=== PATIENT | male | born 1975 | race Caucasian/White ===

== ENCOUNTER → 2017-07-31 | Outpatient (CLI) | payer MEDICARE, MEDICAID | END | disposition home or self-care (01) | LOC: WOUND 10:12 | PROVIDERS: ATTEND Family Medicine | DX: L97.212 Non-pressure chronic ulcer of right calf with fat layer exposed (principal); G82.21 Paraplegia, complete; K21.9 Gastro-esophageal reflux disease without esophagitis; G89.29 Other chronic pain | CPT/HCPCS: G0463; WOU0463 ==

== ENCOUNTER → 2017-08-21 | Outpatient (CLI) | payer MEDICARE, MEDICAID | END | disposition home or self-care (01) | LOC: WOUND 10:14 | PROVIDERS: ATTEND Family Medicine | DX: T81.31XD Disruption of external operation (surgical) wound, not elsewhere classified, subsequent encounter (principal); L89.893 Pressure ulcer of other site, stage 3; L97.212 Non-pressure chronic ulcer of right calf with fat layer exposed; G82.21 Paraplegia, complete; K21.9 Gastro-esophageal reflux disease without esophagitis; G89.29 Other chronic pain; Y83.8 Other surgical procedures as the cause of abnormal reaction of the patient, or of later complication, without mention of misadventure at the time of the procedure | CPT/HCPCS: 11043; 11046 ==

== ENCOUNTER → 2017-10-09 | Outpatient (CLI) | payer MEDICARE, MEDICAID | END | disposition home or self-care (01) | LOC: WOUND 09:47 | PROVIDERS: ATTEND Family Medicine | DX: T81.31XD Disruption of external operation (surgical) wound, not elsewhere classified, subsequent encounter (principal); G82.21 Paraplegia, complete; L89.893 Pressure ulcer of other site, stage 3; K21.9 Gastro-esophageal reflux disease without esophagitis; G89.29 Other chronic pain; Y83.8 Other surgical procedures as the cause of abnormal reaction of the patient, or of later complication, without mention of misadventure at the time of the procedure | CPT/HCPCS: 11043; 11046 ==

== ENCOUNTER → 2017-10-23 | Outpatient (CLI) | payer MEDICARE, MEDICAID | END | disposition home or self-care (01) | LOC: WOUND 10:00 | PROVIDERS: ATTEND Family Medicine | DX: T81.31XD Disruption of external operation (surgical) wound, not elsewhere classified, subsequent encounter (principal); L89.893 Pressure ulcer of other site, stage 3; G82.21 Paraplegia, complete; K21.9 Gastro-esophageal reflux disease without esophagitis; G89.29 Other chronic pain; Y83.8 Other surgical procedures as the cause of abnormal reaction of the patient, or of later complication, without mention of misadventure at the time of the procedure | CPT/HCPCS: 11042; 11045; 97606 ==

== ENCOUNTER → 2017-10-30 | Outpatient (CLI) | payer MEDICARE, MEDICAID | END | disposition home or self-care (01) | LOC: WOUND 10:00 | PROVIDERS: ATTEND Family Medicine | DX: T81.31XD Disruption of external operation (surgical) wound, not elsewhere classified, subsequent encounter (principal); L89.893 Pressure ulcer of other site, stage 3; G82.21 Paraplegia, complete; K21.9 Gastro-esophageal reflux disease without esophagitis; G89.29 Other chronic pain; Y83.8 Other surgical procedures as the cause of abnormal reaction of the patient, or of later complication, without mention of misadventure at the time of the procedure | CPT/HCPCS: 11042; 11045; 97606 ==

== ENCOUNTER → 2017-11-13 | Outpatient (CLI) | payer MEDICARE, MEDICAID | END | disposition home or self-care (01) | LOC: WOUND 10:30 | PROVIDERS: ATTEND Family Medicine | DX: T81.31XD Disruption of external operation (surgical) wound, not elsewhere classified, subsequent encounter (principal); L89.893 Pressure ulcer of other site, stage 3; L97.213 Non-pressure chronic ulcer of right calf with necrosis of muscle; G82.21 Paraplegia, complete; G89.29 Other chronic pain; K21.9 Gastro-esophageal reflux disease without esophagitis; Y83.8 Other surgical procedures as the cause of abnormal reaction of the patient, or of later complication, without mention of misadventure at the time of the procedure | CPT/HCPCS: 11043; 11046; 97606 ==

== ENCOUNTER → 2017-11-20 | Outpatient (CLI) | payer MEDICARE, MEDICAID | END | disposition home or self-care (01) | LOC: WOUND 10:00 | PROVIDERS: ATTEND Family Medicine | DX: T81.31XD Disruption of external operation (surgical) wound, not elsewhere classified, subsequent encounter (principal); L89.893 Pressure ulcer of other site, stage 3; G82.21 Paraplegia, complete; K21.9 Gastro-esophageal reflux disease without esophagitis; G89.29 Other chronic pain; Y83.8 Other surgical procedures as the cause of abnormal reaction of the patient, or of later complication, without mention of misadventure at the time of the procedure | CPT/HCPCS: 15271; 15272; Q4132 ==

== ENCOUNTER → 2017-11-27 | Outpatient (CLI) | payer MEDICARE, MEDICAID | END | disposition home or self-care (01) | LOC: WOUND 10:00 | PROVIDERS: ATTEND Family Medicine | DX: T81.31XD Disruption of external operation (surgical) wound, not elsewhere classified, subsequent encounter (principal); L89.893 Pressure ulcer of other site, stage 3; G82.21 Paraplegia, complete; K21.9 Gastro-esophageal reflux disease without esophagitis; G89.29 Other chronic pain; Y83.8 Other surgical procedures as the cause of abnormal reaction of the patient, or of later complication, without mention of misadventure at the time of the procedure | CPT/HCPCS: 11042; 11045; 97605 ==

== ENCOUNTER → 2017-12-04 | Outpatient (CLI) | payer MEDICARE, MEDICAID | END | disposition home or self-care (01) | LOC: WOUND 10:27 | PROVIDERS: ATTEND Family Medicine | DX: T81.31XD Disruption of external operation (surgical) wound, not elsewhere classified, subsequent encounter (principal); L89.893 Pressure ulcer of other site, stage 3; G82.21 Paraplegia, complete; K21.9 Gastro-esophageal reflux disease without esophagitis; G89.29 Other chronic pain; Y83.8 Other surgical procedures as the cause of abnormal reaction of the patient, or of later complication, without mention of misadventure at the time of the procedure | CPT/HCPCS: 11042; 11045; 97605 ==

== ENCOUNTER → 2017-12-11 | Outpatient (CLI) | payer MEDICARE, MEDICAID | END | disposition home or self-care (01) | LOC: WOUND 10:00 | PROVIDERS: ATTEND Family Medicine | DX: T81.31XD Disruption of external operation (surgical) wound, not elsewhere classified, subsequent encounter (principal); L89.893 Pressure ulcer of other site, stage 3; L97.212 Non-pressure chronic ulcer of right calf with fat layer exposed; G82.21 Paraplegia, complete; K21.9 Gastro-esophageal reflux disease without esophagitis; G89.29 Other chronic pain; Y83.8 Other surgical procedures as the cause of abnormal reaction of the patient, or of later complication, without mention of misadventure at the time of the procedure | CPT/HCPCS: 97597; 97598 ==

== ENCOUNTER → 2017-12-18 | Outpatient (CLI) | payer MEDICARE, MEDICAID | END | disposition home or self-care (01) | LOC: WOUND 10:17 | PROVIDERS: ATTEND Family Medicine | DX: T81.31XD Disruption of external operation (surgical) wound, not elsewhere classified, subsequent encounter (principal); L89.893 Pressure ulcer of other site, stage 3; G82.21 Paraplegia, complete; K21.9 Gastro-esophageal reflux disease without esophagitis; G89.29 Other chronic pain; Y83.8 Other surgical procedures as the cause of abnormal reaction of the patient, or of later complication, without mention of misadventure at the time of the procedure | CPT/HCPCS: 11043; 11046; 97605 ==

== ENCOUNTER → 2017-12-25 | Outpatient (CLI) | payer MEDICARE, MEDICAID | END | disposition home or self-care (01) | LOC: WOUND 10:35 | PROVIDERS: ATTEND Family Medicine | DX: T81.31XD Disruption of external operation (surgical) wound, not elsewhere classified, subsequent encounter (principal); L89.893 Pressure ulcer of other site, stage 3; L89.323 Pressure ulcer of left buttock, stage 3; G82.21 Paraplegia, complete; K21.9 Gastro-esophageal reflux disease without esophagitis; G89.29 Other chronic pain; Y83.8 Other surgical procedures as the cause of abnormal reaction of the patient, or of later complication, without mention of misadventure at the time of the procedure | CPT/HCPCS: 11042; 11045; 97605; G0463; WOU0463 ==

== ENCOUNTER → 2018-01-01 | Outpatient (CLI) | payer MEDICARE, MEDICAID | END | disposition home or self-care (01) | LOC: WOUND 10:16 | PROVIDERS: ATTEND Family Medicine | DX: T81.31XD Disruption of external operation (surgical) wound, not elsewhere classified, subsequent encounter (principal); L89.313 Pressure ulcer of right buttock, stage 3; L89.323 Pressure ulcer of left buttock, stage 3; G82.21 Paraplegia, complete; K21.9 Gastro-esophageal reflux disease without esophagitis; G89.29 Other chronic pain; Y83.8 Other surgical procedures as the cause of abnormal reaction of the patient, or of later complication, without mention of misadventure at the time of the procedure | CPT/HCPCS: 11042; 11045; 97605 ==

== ENCOUNTER → 2018-01-08 | Outpatient (CLI) | payer MEDICARE, MEDICAID | END | disposition home or self-care (01) | LOC: WOUND 10:05 | PROVIDERS: ATTEND Family Medicine | DX: T81.31XD Disruption of external operation (surgical) wound, not elsewhere classified, subsequent encounter (principal); L89.324 Pressure ulcer of left buttock, stage 4; L97.212 Non-pressure chronic ulcer of right calf with fat layer exposed; K21.9 Gastro-esophageal reflux disease without esophagitis; G82.21 Paraplegia, complete; G89.29 Other chronic pain; Y83.8 Other surgical procedures as the cause of abnormal reaction of the patient, or of later complication, without mention of misadventure at the time of the procedure | CPT/HCPCS: 11044; 15271; 15272; 97605; Q4133 ==

== ENCOUNTER → 2018-01-15 | Outpatient (CLI) | payer MEDICARE, MEDICAID | END | disposition home or self-care (01) | LOC: WOUND 10:16 | PROVIDERS: ATTEND Family Medicine | DX: T81.31XD Disruption of external operation (surgical) wound, not elsewhere classified, subsequent encounter (principal); L89.324 Pressure ulcer of left buttock, stage 4; L89.893 Pressure ulcer of other site, stage 3; K21.9 Gastro-esophageal reflux disease without esophagitis; G82.21 Paraplegia, complete; G89.29 Other chronic pain; M54.9 Dorsalgia, unspecified | CPT/HCPCS: 11043; 11046 ==

== ENCOUNTER → 2018-01-16 | Outpatient (CLI) | payer MEDICARE, MEDICAID | END | disposition home or self-care (01) | LOC: RAD 09:18 | PROVIDERS: ATTEND Family Medicine | DX: M25.452 Effusion, left hip (principal) ==

== ENCOUNTER → 2018-01-20 | Outpatient (CLI) | payer MEDICARE, MEDICAID | END | disposition home or self-care (01) | LOC: WOUND 10:29 | PROVIDERS: ATTEND Internal Medicine Cardiovascular Disease | DX: T81.31XD Disruption of external operation (surgical) wound, not elsewhere classified, subsequent encounter (principal); L89.324 Pressure ulcer of left buttock, stage 4; L97.212 Non-pressure chronic ulcer of right calf with fat layer exposed; G82.21 Paraplegia, complete; K21.9 Gastro-esophageal reflux disease without esophagitis; G89.29 Other chronic pain; Y83.8 Other surgical procedures as the cause of abnormal reaction of the patient, or of later complication, without mention of misadventure at the time of the procedure | CPT/HCPCS: G0463; WOU0463 ==

== ENCOUNTER → 2018-01-29 | Outpatient (CLI) | payer MEDICARE, MEDICAID | END | disposition home or self-care (01) | LOC: WOUND 10:13 | PROVIDERS: ATTEND Family Medicine | DX: T81.31XD Disruption of external operation (surgical) wound, not elsewhere classified, subsequent encounter (principal); L89.324 Pressure ulcer of left buttock, stage 4; L97.212 Non-pressure chronic ulcer of right calf with fat layer exposed; L89.893 Pressure ulcer of other site, stage 3; G82.21 Paraplegia, complete; K21.9 Gastro-esophageal reflux disease without esophagitis; G89.29 Other chronic pain; Y83.8 Other surgical procedures as the cause of abnormal reaction of the patient, or of later complication, without mention of misadventure at the time of the procedure | CPT/HCPCS: G0463; WOU0463 ==

== ENCOUNTER → 2018-02-09 | Outpatient (CLI) | payer MEDICARE, MEDICAID | END | disposition home or self-care (01) | LOC: WOUND 10:00 | PROVIDERS: ATTEND Nurse Practitioner Family | DX: L89.323 Pressure ulcer of left buttock, stage 3 (principal); G82.21 Paraplegia, complete; G89.29 Other chronic pain; M54.9 Dorsalgia, unspecified; K21.9 Gastro-esophageal reflux disease without esophagitis | CPT/HCPCS: 11043; 97605 ==

== ENCOUNTER → 2018-02-12 | Outpatient (CLI) | payer MEDICARE, MEDICAID | END | disposition home or self-care (01) | LOC: WOUND 10:08 | PROVIDERS: ATTEND Family Medicine | DX: L89.324 Pressure ulcer of left buttock, stage 4 (principal); G82.21 Paraplegia, complete; K21.9 Gastro-esophageal reflux disease without esophagitis; G89.4 Chronic pain syndrome; M54.9 Dorsalgia, unspecified | CPT/HCPCS: 97605 ==

== ENCOUNTER → 2018-02-16 | Outpatient (CLI) | payer MEDICARE, MEDICAID | END | disposition home or self-care (01) | LOC: WOUND 10:26 | PROVIDERS: ATTEND Nurse Practitioner Family | DX: T81.31XD Disruption of external operation (surgical) wound, not elsewhere classified, subsequent encounter (principal); L89.323 Pressure ulcer of left buttock, stage 3; G82.21 Paraplegia, complete; G89.29 Other chronic pain; M54.9 Dorsalgia, unspecified; K21.9 Gastro-esophageal reflux disease without esophagitis; Y83.8 Other surgical procedures as the cause of abnormal reaction of the patient, or of later complication, without mention of misadventure at the time of the procedure | CPT/HCPCS: 11042; 97605 ==

== ENCOUNTER → 2018-02-23 | Outpatient (CLI) | payer MEDICARE, MEDICAID | END | disposition home or self-care (01) | LOC: WOUND 10:21 | PROVIDERS: ATTEND Nurse Practitioner Family | DX: T81.31XD Disruption of external operation (surgical) wound, not elsewhere classified, subsequent encounter (principal); L89.323 Pressure ulcer of left buttock, stage 3; G82.21 Paraplegia, complete; G89.29 Other chronic pain; M54.9 Dorsalgia, unspecified; K21.9 Gastro-esophageal reflux disease without esophagitis; Y83.8 Other surgical procedures as the cause of abnormal reaction of the patient, or of later complication, without mention of misadventure at the time of the procedure | CPT/HCPCS: 11042; 97605 ==

== ENCOUNTER → 2018-03-02 | Outpatient (CLI) | payer MEDICARE, MEDICAID | END | disposition home or self-care (01) | LOC: WOUND 10:16 | PROVIDERS: ATTEND Internal Medicine Infectious Disease | DX: T87.89 Other complications of amputation stump (principal); L89.324 Pressure ulcer of left buttock, stage 4; L89.893 Pressure ulcer of other site, stage 3; G82.21 Paraplegia, complete; K21.9 Gastro-esophageal reflux disease without esophagitis; G89.29 Other chronic pain; Y83.5 Amputation of limb(s) as the cause of abnormal reaction of the patient, or of later complication, without mention of misadventure at the time of the procedure | CPT/HCPCS: 11042; 87070; 87077; 87186; 87205; 97605 ==

== ENCOUNTER → 2018-03-09 | Outpatient (CLI) | payer MEDICARE, MEDICAID | END | disposition home or self-care (01) | LOC: WOUND 10:16 | PROVIDERS: ATTEND Nurse Practitioner Family | DX: L89.324 Pressure ulcer of left buttock, stage 4 (principal); L89.893 Pressure ulcer of other site, stage 3; G82.21 Paraplegia, complete; K21.9 Gastro-esophageal reflux disease without esophagitis; G89.4 Chronic pain syndrome | CPT/HCPCS: 15271; 97597; Q4132 ==

== ENCOUNTER → 2018-03-19 | Outpatient (CLI) | payer MEDICARE, MEDICAID | END | disposition home or self-care (01) | LOC: WOUND 10:24 | PROVIDERS: ATTEND Family Medicine | DX: T81.31XD Disruption of external operation (surgical) wound, not elsewhere classified, subsequent encounter (principal); L89.324 Pressure ulcer of left buttock, stage 4; G82.21 Paraplegia, complete; S80.211A Abrasion, right knee, initial encounter; G89.29 Other chronic pain; M54.9 Dorsalgia, unspecified; K21.9 Gastro-esophageal reflux disease without esophagitis; X58.XXXA Exposure to other specified factors, initial encounter; Y93.89 Activity, other specified; Y92.89 Other specified places as the place of occurrence of the external cause; Y99.8 Other external cause status; Y83.8 Other surgical procedures as the cause of abnormal reaction of the patient, or of later complication, without mention of misadventure at the time of the procedure | CPT/HCPCS: 97597; 97605 ==

== ENCOUNTER → 2018-03-26 | Outpatient (CLI) | payer MEDICARE, MEDICAID | END | disposition home or self-care (01) | LOC: WOUND 10:21 | PROVIDERS: ATTEND Family Medicine | DX: T87.89 Other complications of amputation stump (principal); L89.893 Pressure ulcer of other site, stage 3; G82.21 Paraplegia, complete; G89.29 Other chronic pain; K21.9 Gastro-esophageal reflux disease without esophagitis; Y83.5 Amputation of limb(s) as the cause of abnormal reaction of the patient, or of later complication, without mention of misadventure at the time of the procedure | CPT/HCPCS: 97597; 97605 ==

== ENCOUNTER → 2018-04-02 | Outpatient (CLI) | payer MEDICARE, MEDICAID | END | disposition home or self-care (01) | LOC: WOUND 10:19 | PROVIDERS: ATTEND Family Medicine | DX: T81.31XD Disruption of external operation (surgical) wound, not elsewhere classified, subsequent encounter (principal); L89.324 Pressure ulcer of left buttock, stage 4; L89.893 Pressure ulcer of other site, stage 3; S80.211D Abrasion, right knee, subsequent encounter; G82.21 Paraplegia, complete; G89.29 Other chronic pain; K21.9 Gastro-esophageal reflux disease without esophagitis; X58.XXXD Exposure to other specified factors, subsequent encounter; Y83.8 Other surgical procedures as the cause of abnormal reaction of the patient, or of later complication, without mention of misadventure at the time of the procedure | CPT/HCPCS: 11043; 97597; 97605 ==

== ENCOUNTER → 2018-04-30 | Outpatient (CLI) | payer MEDICARE, MEDICAID | END | disposition home or self-care (01) | LOC: WOUND 10:19 | PROVIDERS: ATTEND Family Medicine | DX: T81.31XD Disruption of external operation (surgical) wound, not elsewhere classified, subsequent encounter (principal); L89.323 Pressure ulcer of left buttock, stage 3; L98.416 Non-pressure chronic ulcer of buttock with bone involvement without evidence of necrosis; L89.893 Pressure ulcer of other site, stage 3; L97.811 Non-pressure chronic ulcer of other part of right lower leg limited to breakdown of skin; G89.4 Chronic pain syndrome; G82.21 Paraplegia, complete; M46.28 Osteomyelitis of vertebra, sacral and sacrococcygeal region; K21.9 Gastro-esophageal reflux disease without esophagitis; Y83.8 Other surgical procedures as the cause of abnormal reaction of the patient, or of later complication, without mention of misadventure at the time of the procedure | CPT/HCPCS: 11043; 97605 ==

== ENCOUNTER → 2018-05-07 | Outpatient (CLI) | payer MEDICARE, MEDICAID | END | disposition home or self-care (01) | LOC: WOUND 10:21 | PROVIDERS: ATTEND Family Medicine | DX: T81.31XD Disruption of external operation (surgical) wound, not elsewhere classified, subsequent encounter (principal); L89.324 Pressure ulcer of left buttock, stage 4; L98.411 Non-pressure chronic ulcer of buttock limited to breakdown of skin; L89.893 Pressure ulcer of other site, stage 3; L97.811 Non-pressure chronic ulcer of other part of right lower leg limited to breakdown of skin; G89.4 Chronic pain syndrome; G82.21 Paraplegia, complete; M46.28 Osteomyelitis of vertebra, sacral and sacrococcygeal region; K21.9 Gastro-esophageal reflux disease without esophagitis; Y83.8 Other surgical procedures as the cause of abnormal reaction of the patient, or of later complication, without mention of misadventure at the time of the procedure | CPT/HCPCS: 97605 ==

== ENCOUNTER → 2018-05-14 | Outpatient (CLI) | payer MEDICARE, MEDICAID | END | disposition home or self-care (01) | LOC: WOUND 10:00 | PROVIDERS: ATTEND Family Medicine | DX: T81.31XD Disruption of external operation (surgical) wound, not elsewhere classified, subsequent encounter (principal); L89.324 Pressure ulcer of left buttock, stage 4; G89.4 Chronic pain syndrome; G82.21 Paraplegia, complete; M46.28 Osteomyelitis of vertebra, sacral and sacrococcygeal region; K21.9 Gastro-esophageal reflux disease without esophagitis; Y83.8 Other surgical procedures as the cause of abnormal reaction of the patient, or of later complication, without mention of misadventure at the time of the procedure | CPT/HCPCS: 97605 ==

== ENCOUNTER → 2018-05-28 | Outpatient (CLI) | payer MEDICARE, MEDICAID | END | disposition home or self-care (01) | LOC: WOUND 10:22 | PROVIDERS: ATTEND Family Medicine | DX: T81.31XD Disruption of external operation (surgical) wound, not elsewhere classified, subsequent encounter (principal); L89.324 Pressure ulcer of left buttock, stage 4; G89.4 Chronic pain syndrome; G82.21 Paraplegia, complete; M46.28 Osteomyelitis of vertebra, sacral and sacrococcygeal region; K21.9 Gastro-esophageal reflux disease without esophagitis; Y83.8 Other surgical procedures as the cause of abnormal reaction of the patient, or of later complication, without mention of misadventure at the time of the procedure | CPT/HCPCS: G0463 ==

== ENCOUNTER 2018-06-01 10:56 | Outpatient (CLI) | payer MEDICARE, MEDICAID | END 2018-06-01 23:59 | disposition home or self-care (01) | LOC: WOUND 10:56 | PROVIDERS: ATTEND Internal Medicine Infectious Disease | DX: T81.31XD Disruption of external operation (surgical) wound, not elsewhere classified, subsequent encounter (principal); L89.324 Pressure ulcer of left buttock, stage 4; G89.4 Chronic pain syndrome; G82.21 Paraplegia, complete; K21.9 Gastro-esophageal reflux disease without esophagitis; M46.28 Osteomyelitis of vertebra, sacral and sacrococcygeal region; Y83.8 Other surgical procedures as the cause of abnormal reaction of the patient, or of later complication, without mention of misadventure at the time of the procedure | CPT/HCPCS: G0463 ==

== ENCOUNTER → 2018-06-22 | Outpatient (CLI) | payer MEDICARE, MEDICAID | END | disposition home or self-care (01) | LOC: WOUND 10:00 | PROVIDERS: ATTEND Nurse Practitioner Family | DX: T81.31XD Disruption of external operation (surgical) wound, not elsewhere classified, subsequent encounter (principal); L89.324 Pressure ulcer of left buttock, stage 4; G82.21 Paraplegia, complete; G89.4 Chronic pain syndrome; M46.28 Osteomyelitis of vertebra, sacral and sacrococcygeal region; K21.9 Gastro-esophageal reflux disease without esophagitis; Y83.8 Other surgical procedures as the cause of abnormal reaction of the patient, or of later complication, without mention of misadventure at the time of the procedure | CPT/HCPCS: 97597 ==

== ENCOUNTER 2018-08-03 10:02 | Outpatient (CLI) | payer MEDICARE, MEDICAID | END 2018-08-03 23:59 | disposition home or self-care (01) | LOC: WOUND 10:02 | PROVIDERS: ATTEND Nurse Practitioner Family | DX: T81.31XD Disruption of external operation (surgical) wound, not elsewhere classified, subsequent encounter (principal); L89.324 Pressure ulcer of left buttock, stage 4; L98.416 Non-pressure chronic ulcer of buttock with bone involvement without evidence of necrosis; L89.012 Pressure ulcer of right elbow, stage 2; L89.890 Pressure ulcer of other site, unstageable; M25.421 Effusion, right elbow; R64 Cachexia; G82.21 Paraplegia, complete; G89.4 Chronic pain syndrome; M46.28 Osteomyelitis of vertebra, sacral and sacrococcygeal region; K21.9 Gastro-esophageal reflux disease without esophagitis; F12.10 Cannabis abuse, uncomplicated; Y83.8 Other surgical procedures as the cause of abnormal reaction of the patient, or of later complication, without mention of misadventure at the time of the procedure | CPT/HCPCS: 15271; 97597; Q4196 ==

== ENCOUNTER → 2018-09-28 | Outpatient (CLI) | payer MEDICARE, MEDICAID | END | disposition home or self-care (01) | LOC: WOUND 10:47 | PROVIDERS: ATTEND Internal Medicine Infectious Disease | DX: T81.31XD Disruption of external operation (surgical) wound, not elsewhere classified, subsequent encounter (principal); L89.324 Pressure ulcer of left buttock, stage 4; L98.416 Non-pressure chronic ulcer of buttock with bone involvement without evidence of necrosis; L89.014 Pressure ulcer of right elbow, stage 4; L98.496 Non-pressure chronic ulcer of skin of other sites with bone involvement without evidence of necrosis; G82.21 Paraplegia, complete; M25.421 Effusion, right elbow; R64 Cachexia; G89.4 Chronic pain syndrome; M86.00 Acute hematogenous osteomyelitis, unspecified site; M86.032 Acute hematogenous osteomyelitis, left radius and ulna; M46.28 Osteomyelitis of vertebra, sacral and sacrococcygeal region; E44.0 Moderate protein-calorie malnutrition; K21.9 Gastro-esophageal reflux disease without esophagitis; Y83.8 Other surgical procedures as the cause of abnormal reaction of the patient, or of later complication, without mention of misadventure at the time of the procedure | CPT/HCPCS: 97605; G0463 ==

== ENCOUNTER → 2018-10-08 | Outpatient (CLI) | payer MEDICARE, MEDICAID | END | disposition home or self-care (01) | LOC: WOUND 09:46 | PROVIDERS: ATTEND Family Medicine | DX: T81.31XD Disruption of external operation (surgical) wound, not elsewhere classified, subsequent encounter (principal); L89.324 Pressure ulcer of left buttock, stage 4; L89.012 Pressure ulcer of right elbow, stage 2; L98.416 Non-pressure chronic ulcer of buttock with bone involvement without evidence of necrosis; L98.496 Non-pressure chronic ulcer of skin of other sites with bone involvement without evidence of necrosis; G82.21 Paraplegia, complete; M25.421 Effusion, right elbow; R64 Cachexia; G89.4 Chronic pain syndrome; G82.20 Paraplegia, unspecified; M46.28 Osteomyelitis of vertebra, sacral and sacrococcygeal region; M86.00 Acute hematogenous osteomyelitis, unspecified site; K21.9 Gastro-esophageal reflux disease without esophagitis; Y83.8 Other surgical procedures as the cause of abnormal reaction of the patient, or of later complication, without mention of misadventure at the time of the procedure | CPT/HCPCS: 97605 ==

== ENCOUNTER → 2018-10-12 | Outpatient (CLI) | payer MEDICARE, MEDICAID | END | disposition home or self-care (01) | LOC: WOUND 10:26 | PROVIDERS: ATTEND Nurse Practitioner Family | DX: T81.31XD Disruption of external operation (surgical) wound, not elsewhere classified, subsequent encounter (principal); L89.324 Pressure ulcer of left buttock, stage 4; L98.416 Non-pressure chronic ulcer of buttock with bone involvement without evidence of necrosis; L89.014 Pressure ulcer of right elbow, stage 4; L98.496 Non-pressure chronic ulcer of skin of other sites with bone involvement without evidence of necrosis; G82.21 Paraplegia, complete; R64 Cachexia; G89.4 Chronic pain syndrome; K21.9 Gastro-esophageal reflux disease without esophagitis; M46.28 Osteomyelitis of vertebra, sacral and sacrococcygeal region; M86.032 Acute hematogenous osteomyelitis, left radius and ulna; Y83.8 Other surgical procedures as the cause of abnormal reaction of the patient, or of later complication, without mention of misadventure at the time of the procedure | CPT/HCPCS: 11043; 11044; 97605 ==

== ENCOUNTER 2018-11-02 10:00 | Outpatient (CLI) | payer MEDICARE, MEDICAID | END 2018-11-02 23:59 | disposition home or self-care (01) | LOC: WOUND 10:00 | PROVIDERS: ATTEND Nurse Practitioner Family | DX: T81.31XD Disruption of external operation (surgical) wound, not elsewhere classified, subsequent encounter (principal); L89.324 Pressure ulcer of left buttock, stage 4; L89.014 Pressure ulcer of right elbow, stage 4; R64 Cachexia; G82.21 Paraplegia, complete; G89.4 Chronic pain syndrome; M46.28 Osteomyelitis of vertebra, sacral and sacrococcygeal region; M86.032 Acute hematogenous osteomyelitis, left radius and ulna; K21.9 Gastro-esophageal reflux disease without esophagitis; Y83.8 Other surgical procedures as the cause of abnormal reaction of the patient, or of later complication, without mention of misadventure at the time of the procedure | CPT/HCPCS: 11042; 11045; 97597; 97598 ==

== ENCOUNTER → 2018-11-19 | Outpatient (CLI) | payer MEDICARE, MEDICAID | END | disposition home or self-care (01) | LOC: WOUND 09:59 | PROVIDERS: ATTEND Family Medicine | DX: T81.31XD Disruption of external operation (surgical) wound, not elsewhere classified, subsequent encounter (principal); L89.324 Pressure ulcer of left buttock, stage 4; L89.014 Pressure ulcer of right elbow, stage 4; R64 Cachexia; G82.21 Paraplegia, complete; G89.4 Chronic pain syndrome; M46.28 Osteomyelitis of vertebra, sacral and sacrococcygeal region; M86.032 Acute hematogenous osteomyelitis, left radius and ulna; K21.9 Gastro-esophageal reflux disease without esophagitis; Y83.8 Other surgical procedures as the cause of abnormal reaction of the patient, or of later complication, without mention of misadventure at the time of the procedure | CPT/HCPCS: 97605 ==

== ENCOUNTER 2018-12-17 10:04 | Outpatient (CLI) | payer MEDICARE, MEDICAID | END 2018-12-17 23:59 | disposition home or self-care (01) | LOC: WOUND 10:04 | PROVIDERS: ATTEND Family Medicine | DX: T81.31XD Disruption of external operation (surgical) wound, not elsewhere classified, subsequent encounter (principal); L89.324 Pressure ulcer of left buttock, stage 4; L89.014 Pressure ulcer of right elbow, stage 4; R64 Cachexia; G82.21 Paraplegia, complete; G89.4 Chronic pain syndrome; M46.28 Osteomyelitis of vertebra, sacral and sacrococcygeal region; M86.032 Acute hematogenous osteomyelitis, left radius and ulna; K21.9 Gastro-esophageal reflux disease without esophagitis; Y83.8 Other surgical procedures as the cause of abnormal reaction of the patient, or of later complication, without mention of misadventure at the time of the procedure | CPT/HCPCS: G0463 ==

== ENCOUNTER 2018-12-24 10:19 | Outpatient (CLI) | payer MEDICARE, MEDICAID | END 2018-12-24 23:59 | disposition home or self-care (01) | LOC: WOUND 10:19 | PROVIDERS: ATTEND Family Medicine | DX: T81.31XD Disruption of external operation (surgical) wound, not elsewhere classified, subsequent encounter (principal); L89.324 Pressure ulcer of left buttock, stage 4; L89.014 Pressure ulcer of right elbow, stage 4; R64 Cachexia; G82.21 Paraplegia, complete; G89.4 Chronic pain syndrome; M46.28 Osteomyelitis of vertebra, sacral and sacrococcygeal region; M86.032 Acute hematogenous osteomyelitis, left radius and ulna; K21.9 Gastro-esophageal reflux disease without esophagitis; Y83.8 Other surgical procedures as the cause of abnormal reaction of the patient, or of later complication, without mention of misadventure at the time of the procedure | CPT/HCPCS: G0463 ==

== ENCOUNTER 2018-12-31 10:03 | Outpatient (CLI) | payer MEDICARE, MEDICAID | END 2018-12-31 23:59 | disposition home or self-care (01) | LOC: WOUND 10:03 | PROVIDERS: ATTEND Family Medicine | DX: T81.31XD Disruption of external operation (surgical) wound, not elsewhere classified, subsequent encounter (principal); L89.324 Pressure ulcer of left buttock, stage 4; L89.014 Pressure ulcer of right elbow, stage 4; R64 Cachexia; G82.21 Paraplegia, complete; G89.4 Chronic pain syndrome; M46.28 Osteomyelitis of vertebra, sacral and sacrococcygeal region; M86.032 Acute hematogenous osteomyelitis, left radius and ulna; K21.9 Gastro-esophageal reflux disease without esophagitis; Y83.8 Other surgical procedures as the cause of abnormal reaction of the patient, or of later complication, without mention of misadventure at the time of the procedure | CPT/HCPCS: G0463 ==

== ENCOUNTER 2019-01-07 09:58 | Outpatient (CLI) | payer MEDICARE, MEDICAID | END 2019-01-07 23:59 | disposition home or self-care (01) | LOC: WOUND 09:58 | PROVIDERS: ATTEND Family Medicine | DX: T81.30XD Disruption of wound, unspecified, subsequent encounter (principal); L89.324 Pressure ulcer of left buttock, stage 4; L89.014 Pressure ulcer of right elbow, stage 4; R64 Cachexia; G82.21 Paraplegia, complete; G89.4 Chronic pain syndrome; M46.28 Osteomyelitis of vertebra, sacral and sacrococcygeal region; M86.032 Acute hematogenous osteomyelitis, left radius and ulna; K21.9 Gastro-esophageal reflux disease without esophagitis; Y83.8 Other surgical procedures as the cause of abnormal reaction of the patient, or of later complication, without mention of misadventure at the time of the procedure | CPT/HCPCS: G0463 ==

== ENCOUNTER → 2019-03-18 | Outpatient (CLI) | payer MEDICARE, MEDICAID | END | disposition home or self-care (01) | LOC: WOUND 10:34 | PROVIDERS: ATTEND Family Medicine | DX: T81.31XD Disruption of external operation (surgical) wound, not elsewhere classified, subsequent encounter (principal); L89.324 Pressure ulcer of left buttock, stage 4; L89.014 Pressure ulcer of right elbow, stage 4; R64 Cachexia; G82.21 Paraplegia, complete; G89.4 Chronic pain syndrome; M46.28 Osteomyelitis of vertebra, sacral and sacrococcygeal region; M86.032 Acute hematogenous osteomyelitis, left radius and ulna; K21.9 Gastro-esophageal reflux disease without esophagitis; Y83.8 Other surgical procedures as the cause of abnormal reaction of the patient, or of later complication, without mention of misadventure at the time of the procedure | CPT/HCPCS: 97597 ==

== ENCOUNTER → 2019-04-08 | Outpatient (CLI) | payer MEDICARE, MEDICAID | END | disposition home or self-care (01) | LOC: WOUND 10:26 | PROVIDERS: ATTEND Family Medicine | DX: T81.31XD Disruption of external operation (surgical) wound, not elsewhere classified, subsequent encounter (principal); L89.324 Pressure ulcer of left buttock, stage 4; L89.014 Pressure ulcer of right elbow, stage 4; R64 Cachexia; G82.21 Paraplegia, complete; G89.4 Chronic pain syndrome; M46.28 Osteomyelitis of vertebra, sacral and sacrococcygeal region; M86.032 Acute hematogenous osteomyelitis, left radius and ulna; K21.9 Gastro-esophageal reflux disease without esophagitis; Y83.8 Other surgical procedures as the cause of abnormal reaction of the patient, or of later complication, without mention of misadventure at the time of the procedure | CPT/HCPCS: 11042 ==

== ENCOUNTER → 2019-04-15 | Outpatient (CLI) | payer MEDICARE, MEDICAID | END | disposition home or self-care (01) | LOC: WOUND 10:37 | PROVIDERS: ATTEND Family Medicine | DX: T81.31XD Disruption of external operation (surgical) wound, not elsewhere classified, subsequent encounter (principal); L89.324 Pressure ulcer of left buttock, stage 4; L89.014 Pressure ulcer of right elbow, stage 4; R64 Cachexia; G82.21 Paraplegia, complete; G89.4 Chronic pain syndrome; M46.28 Osteomyelitis of vertebra, sacral and sacrococcygeal region; M86.032 Acute hematogenous osteomyelitis, left radius and ulna; K21.9 Gastro-esophageal reflux disease without esophagitis; Y83.8 Other surgical procedures as the cause of abnormal reaction of the patient, or of later complication, without mention of misadventure at the time of the procedure | CPT/HCPCS: 11042 ==

== ENCOUNTER → 2019-05-06 | Outpatient (CLI) | payer MEDICARE, MEDICAID | END | disposition home or self-care (01) | LOC: WOUND 10:37 | PROVIDERS: ATTEND Family Medicine | DX: T81.31XD Disruption of external operation (surgical) wound, not elsewhere classified, subsequent encounter (principal); L89.324 Pressure ulcer of left buttock, stage 4; L89.014 Pressure ulcer of right elbow, stage 4; R64 Cachexia; G82.21 Paraplegia, complete; G89.4 Chronic pain syndrome; M46.28 Osteomyelitis of vertebra, sacral and sacrococcygeal region; M86.032 Acute hematogenous osteomyelitis, left radius and ulna; K21.9 Gastro-esophageal reflux disease without esophagitis; Y83.8 Other surgical procedures as the cause of abnormal reaction of the patient, or of later complication, without mention of misadventure at the time of the procedure; Z88.0 Allergy status to penicillin | CPT/HCPCS: G0463 ==

== ENCOUNTER → 2019-05-27 | Outpatient (CLI) | payer MEDICARE, MEDICAID | END | disposition home or self-care (01) | LOC: WOUND 10:27 | PROVIDERS: ATTEND Family Medicine | DX: T81.31XD Disruption of external operation (surgical) wound, not elsewhere classified, subsequent encounter (principal); L89.324 Pressure ulcer of left buttock, stage 4; L89.014 Pressure ulcer of right elbow, stage 4; R64 Cachexia; G82.21 Paraplegia, complete; G89.4 Chronic pain syndrome; M46.28 Osteomyelitis of vertebra, sacral and sacrococcygeal region; M86.032 Acute hematogenous osteomyelitis, left radius and ulna; K21.9 Gastro-esophageal reflux disease without esophagitis; Z88.0 Allergy status to penicillin; Y83.8 Other surgical procedures as the cause of abnormal reaction of the patient, or of later complication, without mention of misadventure at the time of the procedure | CPT/HCPCS: 11042 ==

== ENCOUNTER → 2019-06-17 | Outpatient (CLI) | payer MEDICARE, MEDICAID | END | disposition home or self-care (01) | LOC: WOUND 10:27 | PROVIDERS: ATTEND Family Medicine | DX: T81.31XD Disruption of external operation (surgical) wound, not elsewhere classified, subsequent encounter (principal); L89.324 Pressure ulcer of left buttock, stage 4; L89.012 Pressure ulcer of right elbow, stage 2; R64 Cachexia; G82.21 Paraplegia, complete; M86.032 Acute hematogenous osteomyelitis, left radius and ulna; M86.00 Acute hematogenous osteomyelitis, unspecified site; K21.9 Gastro-esophageal reflux disease without esophagitis; M46.28 Osteomyelitis of vertebra, sacral and sacrococcygeal region; Y83.8 Other surgical procedures as the cause of abnormal reaction of the patient, or of later complication, without mention of misadventure at the time of the procedure | CPT/HCPCS: 11043 ==

== ENCOUNTER 2019-06-24 10:27 | Outpatient (CLI) | payer MEDICARE, MEDICAID | END 2019-06-24 23:59 | disposition home or self-care (01) | LOC: WOUND 10:27 | PROVIDERS: ATTEND Family Medicine | DX: T81.31XD Disruption of external operation (surgical) wound, not elsewhere classified, subsequent encounter (principal); L89.324 Pressure ulcer of left buttock, stage 4; L89.012 Pressure ulcer of right elbow, stage 2; M86.032 Acute hematogenous osteomyelitis, left radius and ulna; M86.00 Acute hematogenous osteomyelitis, unspecified site; M46.28 Osteomyelitis of vertebra, sacral and sacrococcygeal region; K21.9 Gastro-esophageal reflux disease without esophagitis; G82.21 Paraplegia, complete; G89.4 Chronic pain syndrome; R64 Cachexia; Z88.0 Allergy status to penicillin; X58.XXXD Exposure to other specified factors, subsequent encounter | CPT/HCPCS: G0463 ==

== ENCOUNTER → 2019-07-01 | Outpatient (CLI) | payer MEDICARE, MEDICAID | END | disposition home or self-care (01) | LOC: WOUND 10:39 | PROVIDERS: ATTEND Family Medicine | DX: T81.30XD Disruption of wound, unspecified, subsequent encounter (principal); L89.324 Pressure ulcer of left buttock, stage 4; L89.012 Pressure ulcer of right elbow, stage 2; M86.032 Acute hematogenous osteomyelitis, left radius and ulna; M86.00 Acute hematogenous osteomyelitis, unspecified site; M46.28 Osteomyelitis of vertebra, sacral and sacrococcygeal region; K21.9 Gastro-esophageal reflux disease without esophagitis; G82.21 Paraplegia, complete; R64 Cachexia; Z88.0 Allergy status to penicillin; Y83.8 Other surgical procedures as the cause of abnormal reaction of the patient, or of later complication, without mention of misadventure at the time of the procedure | CPT/HCPCS: G0463 ==

== ENCOUNTER → 2019-07-22 | Outpatient (CLI) | payer MEDICARE, MEDICAID | END | disposition home or self-care (01) | LOC: WOUND 10:39 | PROVIDERS: ATTEND Family Medicine | DX: T81.30XD Disruption of wound, unspecified, subsequent encounter (principal); L89.324 Pressure ulcer of left buttock, stage 4; L89.012 Pressure ulcer of right elbow, stage 2; M86.032 Acute hematogenous osteomyelitis, left radius and ulna; M86.00 Acute hematogenous osteomyelitis, unspecified site; M46.28 Osteomyelitis of vertebra, sacral and sacrococcygeal region; K21.9 Gastro-esophageal reflux disease without esophagitis; G82.21 Paraplegia, complete; R64 Cachexia; Z88.0 Allergy status to penicillin; Y83.8 Other surgical procedures as the cause of abnormal reaction of the patient, or of later complication, without mention of misadventure at the time of the procedure | CPT/HCPCS: 11043; 87070; 87077; 87147; 87186; 87205 ==

== ENCOUNTER → 2019-08-05 | Outpatient (CLI) | payer MEDICARE, MEDICAID | END | disposition home or self-care (01) | LOC: WOUND 10:38 | PROVIDERS: ATTEND Family Medicine | DX: T81.31XD Disruption of external operation (surgical) wound, not elsewhere classified, subsequent encounter (principal); L89.324 Pressure ulcer of left buttock, stage 4; M86.032 Acute hematogenous osteomyelitis, left radius and ulna; M86.00 Acute hematogenous osteomyelitis, unspecified site; M46.28 Osteomyelitis of vertebra, sacral and sacrococcygeal region; K21.9 Gastro-esophageal reflux disease without esophagitis; G82.21 Paraplegia, complete; R64 Cachexia; G89.4 Chronic pain syndrome; Z88.0 Allergy status to penicillin; Y83.8 Other surgical procedures as the cause of abnormal reaction of the patient, or of later complication, without mention of misadventure at the time of the procedure | CPT/HCPCS: 97597 ==

== ENCOUNTER → 2019-08-19 | Outpatient (CLI) | payer MEDICARE, MEDICAID | END | disposition home or self-care (01) | LOC: WOUND 10:25 | PROVIDERS: ATTEND Family Medicine | DX: T81.31XD Disruption of external operation (surgical) wound, not elsewhere classified, subsequent encounter (principal); L89.324 Pressure ulcer of left buttock, stage 4; M86.032 Acute hematogenous osteomyelitis, left radius and ulna; M46.28 Osteomyelitis of vertebra, sacral and sacrococcygeal region; K21.9 Gastro-esophageal reflux disease without esophagitis; G82.21 Paraplegia, complete; G89.4 Chronic pain syndrome; Z88.0 Allergy status to penicillin; Y83.8 Other surgical procedures as the cause of abnormal reaction of the patient, or of later complication, without mention of misadventure at the time of the procedure | CPT/HCPCS: 97597 ==

== ENCOUNTER 2019-09-02 10:26 | Outpatient (CLI) | payer MEDICARE, MEDICAID | END 2019-09-02 23:59 | disposition home or self-care (01) | LOC: WOUND 10:26 | PROVIDERS: ATTEND Family Medicine | DX: T81.31XD Disruption of external operation (surgical) wound, not elsewhere classified, subsequent encounter (principal); L89.324 Pressure ulcer of left buttock, stage 4; M86.032 Acute hematogenous osteomyelitis, left radius and ulna; M46.28 Osteomyelitis of vertebra, sacral and sacrococcygeal region; K21.9 Gastro-esophageal reflux disease without esophagitis; G82.21 Paraplegia, complete; G89.4 Chronic pain syndrome; Z88.0 Allergy status to penicillin; Y83.8 Other surgical procedures as the cause of abnormal reaction of the patient, or of later complication, without mention of misadventure at the time of the procedure | CPT/HCPCS: G0463 ==

== ENCOUNTER → 2019-09-16 | Outpatient (CLI) | payer MEDICARE, MEDICAID | END | disposition home or self-care (01) | LOC: WOUND 10:23 | PROVIDERS: ATTEND Family Medicine | DX: L89.324 Pressure ulcer of left buttock, stage 4 (principal); T81.30XD Disruption of wound, unspecified, subsequent encounter; M86.032 Acute hematogenous osteomyelitis, left radius and ulna; M46.28 Osteomyelitis of vertebra, sacral and sacrococcygeal region; K21.9 Gastro-esophageal reflux disease without esophagitis; G82.21 Paraplegia, complete; G89.4 Chronic pain syndrome; Z88.0 Allergy status to penicillin; Y83.8 Other surgical procedures as the cause of abnormal reaction of the patient, or of later complication, without mention of misadventure at the time of the procedure | CPT/HCPCS: G0463 ==

== ENCOUNTER → 2019-10-07 | Outpatient (CLI) | payer MEDICARE, MEDICAID | END | disposition home or self-care (01) | LOC: WOUND 10:50 | PROVIDERS: ATTEND Family Medicine | DX: L89.324 Pressure ulcer of left buttock, stage 4 (principal); T81.30XD Disruption of wound, unspecified, subsequent encounter; M86.032 Acute hematogenous osteomyelitis, left radius and ulna; M46.28 Osteomyelitis of vertebra, sacral and sacrococcygeal region; K21.9 Gastro-esophageal reflux disease without esophagitis; G82.21 Paraplegia, complete; G89.4 Chronic pain syndrome; Z88.0 Allergy status to penicillin; Y83.8 Other surgical procedures as the cause of abnormal reaction of the patient, or of later complication, without mention of misadventure at the time of the procedure | CPT/HCPCS: 87070; 87075; 87076; 87077; 87147; 87205; 97597 ==

== ENCOUNTER 2019-11-04 10:19 | Outpatient (CLI) | payer MEDICARE, MEDICAID | END 2019-11-04 23:59 | disposition home or self-care (01) | LOC: WOUND 10:19 | PROVIDERS: ATTEND Family Medicine | DX: L89.324 Pressure ulcer of left buttock, stage 4 (principal); T81.30XD Disruption of wound, unspecified, subsequent encounter; M86.032 Acute hematogenous osteomyelitis, left radius and ulna; M46.28 Osteomyelitis of vertebra, sacral and sacrococcygeal region; K21.9 Gastro-esophageal reflux disease without esophagitis; G82.21 Paraplegia, complete; Z88.0 Allergy status to penicillin; Y83.8 Other surgical procedures as the cause of abnormal reaction of the patient, or of later complication, without mention of misadventure at the time of the procedure | CPT/HCPCS: 97597 ==

== ENCOUNTER → 2019-12-02 | Outpatient (CLI) | payer MEDICARE, MEDICAID | END | disposition home or self-care (01) | LOC: WOUND 10:22 | PROVIDERS: ATTEND Family Medicine | DX: T81.30XD Disruption of wound, unspecified, subsequent encounter (principal); L89.324 Pressure ulcer of left buttock, stage 4; G82.21 Paraplegia, complete; M86.032 Acute hematogenous osteomyelitis, left radius and ulna; M46.28 Osteomyelitis of vertebra, sacral and sacrococcygeal region; K21.9 Gastro-esophageal reflux disease without esophagitis; Z88.0 Allergy status to penicillin; Y83.8 Other surgical procedures as the cause of abnormal reaction of the patient, or of later complication, without mention of misadventure at the time of the procedure | CPT/HCPCS: 97597 ==

== ENCOUNTER → 2019-12-23 | Outpatient (CLI) | payer MEDICARE, MEDICAID | END | disposition home or self-care (01) | LOC: WOUND 10:52 | PROVIDERS: ATTEND Family Medicine | DX: T81.31XD Disruption of external operation (surgical) wound, not elsewhere classified, subsequent encounter (principal); L89.324 Pressure ulcer of left buttock, stage 4; G82.21 Paraplegia, complete; M86.032 Acute hematogenous osteomyelitis, left radius and ulna; M46.28 Osteomyelitis of vertebra, sacral and sacrococcygeal region; K21.9 Gastro-esophageal reflux disease without esophagitis; G89.29 Other chronic pain; Z88.0 Allergy status to penicillin; Y83.8 Other surgical procedures as the cause of abnormal reaction of the patient, or of later complication, without mention of misadventure at the time of the procedure | CPT/HCPCS: 97597 ==

== ENCOUNTER → 2020-01-13 | Outpatient (CLI) | payer MEDICARE, MEDICAID | END | disposition home or self-care (01) | LOC: WOUND 10:35 | PROVIDERS: ATTEND Family Medicine | DX: T81.31XD Disruption of external operation (surgical) wound, not elsewhere classified, subsequent encounter (principal); L89.324 Pressure ulcer of left buttock, stage 4; G82.21 Paraplegia, complete; M86.032 Acute hematogenous osteomyelitis, left radius and ulna; M46.28 Osteomyelitis of vertebra, sacral and sacrococcygeal region; K21.9 Gastro-esophageal reflux disease without esophagitis; G89.29 Other chronic pain; Z88.0 Allergy status to penicillin; Y83.8 Other surgical procedures as the cause of abnormal reaction of the patient, or of later complication, without mention of misadventure at the time of the procedure | CPT/HCPCS: G0463 ==

== ENCOUNTER → 2020-01-27 | Outpatient (CLI) | payer MEDICARE, MEDICAID | END | disposition home or self-care (01) | LOC: WOUND 09:47 | PROVIDERS: ATTEND Family Medicine | DX: T81.31XD Disruption of external operation (surgical) wound, not elsewhere classified, subsequent encounter (principal); L89.324 Pressure ulcer of left buttock, stage 4; G82.21 Paraplegia, complete; M86.032 Acute hematogenous osteomyelitis, left radius and ulna; M46.28 Osteomyelitis of vertebra, sacral and sacrococcygeal region; K21.9 Gastro-esophageal reflux disease without esophagitis; G89.29 Other chronic pain; Z88.0 Allergy status to penicillin; Y83.8 Other surgical procedures as the cause of abnormal reaction of the patient, or of later complication, without mention of misadventure at the time of the procedure | CPT/HCPCS: 97597 ==

== ENCOUNTER 2020-02-17 10:40 | Outpatient (CLI) | payer MEDICARE, MEDICAID | END 2020-02-17 23:59 | disposition home or self-care (01) | LOC: WOUND 10:40 | PROVIDERS: ATTEND Family Medicine | DX: T81.31XD Disruption of external operation (surgical) wound, not elsewhere classified, subsequent encounter (principal); L89.324 Pressure ulcer of left buttock, stage 4; G82.21 Paraplegia, complete; M86.032 Acute hematogenous osteomyelitis, left radius and ulna; M46.28 Osteomyelitis of vertebra, sacral and sacrococcygeal region; K21.9 Gastro-esophageal reflux disease without esophagitis; G89.29 Other chronic pain; Z88.0 Allergy status to penicillin; Y83.8 Other surgical procedures as the cause of abnormal reaction of the patient, or of later complication, without mention of misadventure at the time of the procedure | CPT/HCPCS: 97597 ==

== ENCOUNTER → 2020-03-02 | Outpatient (CLI) | payer MEDICARE, MEDICAID | END | disposition home or self-care (01) | LOC: WOUND 10:37 | PROVIDERS: ATTEND Family Medicine | DX: T81.31XD Disruption of external operation (surgical) wound, not elsewhere classified, subsequent encounter (principal); L89.324 Pressure ulcer of left buttock, stage 4; G82.21 Paraplegia, complete; M86.032 Acute hematogenous osteomyelitis, left radius and ulna; M46.28 Osteomyelitis of vertebra, sacral and sacrococcygeal region; K21.9 Gastro-esophageal reflux disease without esophagitis; G89.29 Other chronic pain; Z88.0 Allergy status to penicillin; Y83.8 Other surgical procedures as the cause of abnormal reaction of the patient, or of later complication, without mention of misadventure at the time of the procedure | CPT/HCPCS: 11044 ==

== ENCOUNTER 2020-03-16 10:29 | Outpatient (CLI) | payer MEDICARE, MEDICAID | END 2020-03-16 23:59 | disposition home or self-care (01) | LOC: WOUND 10:29 | PROVIDERS: ATTEND Family Medicine | DX: T81.31XD Disruption of external operation (surgical) wound, not elsewhere classified, subsequent encounter (principal); L89.324 Pressure ulcer of left buttock, stage 4; L89.312 Pressure ulcer of right buttock, stage 2; G82.21 Paraplegia, complete; M86.032 Acute hematogenous osteomyelitis, left radius and ulna; M46.28 Osteomyelitis of vertebra, sacral and sacrococcygeal region; K21.9 Gastro-esophageal reflux disease without esophagitis; G89.29 Other chronic pain; Z88.0 Allergy status to penicillin; Y83.8 Other surgical procedures as the cause of abnormal reaction of the patient, or of later complication, without mention of misadventure at the time of the procedure | CPT/HCPCS: 97597 ==

== ENCOUNTER → 2020-03-30 | Outpatient (CLI) | payer MEDICARE, MEDICAID | END | disposition home or self-care (01) | LOC: WOUND 10:31 | PROVIDERS: ATTEND Family Medicine | DX: T81.31XD Disruption of external operation (surgical) wound, not elsewhere classified, subsequent encounter (principal); L89.324 Pressure ulcer of left buttock, stage 4; L89.312 Pressure ulcer of right buttock, stage 2; L89.113 Pressure ulcer of right upper back, stage 3; G82.21 Paraplegia, complete; M86.032 Acute hematogenous osteomyelitis, left radius and ulna; K21.9 Gastro-esophageal reflux disease without esophagitis; G89.29 Other chronic pain; M46.28 Osteomyelitis of vertebra, sacral and sacrococcygeal region; Y83.8 Other surgical procedures as the cause of abnormal reaction of the patient, or of later complication, without mention of misadventure at the time of the procedure | CPT/HCPCS: 97597 ==

== ENCOUNTER → 2020-04-13 | Outpatient (CLI) | payer MEDICARE, MEDICAID | END | disposition home or self-care (01) | LOC: WOUND 10:45 | PROVIDERS: ATTEND Internal Medicine | DX: T81.31XD Disruption of external operation (surgical) wound, not elsewhere classified, subsequent encounter (principal); L89.324 Pressure ulcer of left buttock, stage 4; L89.312 Pressure ulcer of right buttock, stage 2; L89.113 Pressure ulcer of right upper back, stage 3; G82.21 Paraplegia, complete; M86.032 Acute hematogenous osteomyelitis, left radius and ulna; K21.9 Gastro-esophageal reflux disease without esophagitis; G89.29 Other chronic pain; M46.28 Osteomyelitis of vertebra, sacral and sacrococcygeal region; Y83.8 Other surgical procedures as the cause of abnormal reaction of the patient, or of later complication, without mention of misadventure at the time of the procedure; Z88.0 Allergy status to penicillin | CPT/HCPCS: 97597 ==

== ENCOUNTER → 2020-05-04 | Outpatient (CLI) | payer MEDICARE, MEDICAID | END | disposition home or self-care (01) | LOC: WOUND 10:25 | PROVIDERS: ATTEND Internal Medicine Cardiovascular Disease | DX: T81.31XD Disruption of external operation (surgical) wound, not elsewhere classified, subsequent encounter (principal); L89.324 Pressure ulcer of left buttock, stage 4; L89.312 Pressure ulcer of right buttock, stage 2; L89.113 Pressure ulcer of right upper back, stage 3; G82.21 Paraplegia, complete; M86.032 Acute hematogenous osteomyelitis, left radius and ulna; K21.9 Gastro-esophageal reflux disease without esophagitis; G89.29 Other chronic pain; M46.28 Osteomyelitis of vertebra, sacral and sacrococcygeal region; Z88.0 Allergy status to penicillin; Y83.8 Other surgical procedures as the cause of abnormal reaction of the patient, or of later complication, without mention of misadventure at the time of the procedure | CPT/HCPCS: G0463 ==

== ENCOUNTER → 2020-05-23 | Outpatient (CLI) | payer MEDICARE, MEDICAID | END | disposition home or self-care (01) | LOC: WOUND 10:32 | PROVIDERS: ATTEND Internal Medicine | DX: L89.324 Pressure ulcer of left buttock, stage 4 (principal); L89.312 Pressure ulcer of right buttock, stage 2; L89.113 Pressure ulcer of right upper back, stage 3; G82.21 Paraplegia, complete; M86.032 Acute hematogenous osteomyelitis, left radius and ulna; K21.9 Gastro-esophageal reflux disease without esophagitis; G89.29 Other chronic pain; M46.28 Osteomyelitis of vertebra, sacral and sacrococcygeal region; Z88.0 Allergy status to penicillin | CPT/HCPCS: 97597 ==

== ENCOUNTER → 2020-06-06 | Outpatient (CLI) | payer MEDICARE, MEDICAID | END | disposition home or self-care (01) | LOC: WOUND 10:31 | PROVIDERS: ATTEND Internal Medicine | DX: L89.324 Pressure ulcer of left buttock, stage 4 (principal); L89.312 Pressure ulcer of right buttock, stage 2; L89.113 Pressure ulcer of right upper back, stage 3; G82.21 Paraplegia, complete; M86.032 Acute hematogenous osteomyelitis, left radius and ulna; K21.9 Gastro-esophageal reflux disease without esophagitis; G89.29 Other chronic pain; M46.28 Osteomyelitis of vertebra, sacral and sacrococcygeal region; Z88.0 Allergy status to penicillin | CPT/HCPCS: 97597 ==

== ENCOUNTER → 2020-06-27 | Outpatient (CLI) | payer MEDICARE, MEDICAID | END | disposition home or self-care (01) | LOC: WOUND 10:29 | PROVIDERS: ATTEND Internal Medicine | DX: L89.324 Pressure ulcer of left buttock, stage 4 (principal); L89.312 Pressure ulcer of right buttock, stage 2; L89.113 Pressure ulcer of right upper back, stage 3; G82.21 Paraplegia, complete; M86.032 Acute hematogenous osteomyelitis, left radius and ulna; K21.9 Gastro-esophageal reflux disease without esophagitis; G89.29 Other chronic pain; M46.28 Osteomyelitis of vertebra, sacral and sacrococcygeal region; Z88.0 Allergy status to penicillin | CPT/HCPCS: 97597 ==

== ENCOUNTER → 2020-07-18 | Outpatient (CLI) | payer MEDICARE, MEDICAID | END | disposition home or self-care (01) | LOC: WOUND 10:46 | PROVIDERS: ATTEND Internal Medicine | DX: L89.324 Pressure ulcer of left buttock, stage 4 (principal); L89.312 Pressure ulcer of right buttock, stage 2; G82.21 Paraplegia, complete; M86.032 Acute hematogenous osteomyelitis, left radius and ulna; L89.113 Pressure ulcer of right upper back, stage 3; K21.9 Gastro-esophageal reflux disease without esophagitis; G89.29 Other chronic pain; M46.28 Osteomyelitis of vertebra, sacral and sacrococcygeal region; Z88.0 Allergy status to penicillin | CPT/HCPCS: 97597 ==

== ENCOUNTER 2020-08-08 10:25 | Outpatient (CLI) | payer MEDICARE, MEDICAID | END 2020-08-08 23:59 | disposition home or self-care (01) | LOC: WOUND 10:25 | PROVIDERS: ATTEND Internal Medicine | DX: L89.324 Pressure ulcer of left buttock, stage 4 (principal); L89.312 Pressure ulcer of right buttock, stage 2; G82.21 Paraplegia, complete; M86.032 Acute hematogenous osteomyelitis, left radius and ulna; L89.113 Pressure ulcer of right upper back, stage 3; K21.9 Gastro-esophageal reflux disease without esophagitis; G89.29 Other chronic pain; M46.28 Osteomyelitis of vertebra, sacral and sacrococcygeal region; Z88.0 Allergy status to penicillin | CPT/HCPCS: 97597 ==

== ENCOUNTER 2020-08-14 10:26 | Outpatient (CLI) | payer MEDICARE, MEDICAID | END 2020-08-14 23:59 | disposition home or self-care (01) | LOC: WOUND 10:26 | PROVIDERS: ATTEND Nurse Practitioner Family | DX: L89.324 Pressure ulcer of left buttock, stage 4 (principal); L89.312 Pressure ulcer of right buttock, stage 2; L89.113 Pressure ulcer of right upper back, stage 3; G82.21 Paraplegia, complete; M86.032 Acute hematogenous osteomyelitis, left radius and ulna; K21.9 Gastro-esophageal reflux disease without esophagitis; G89.29 Other chronic pain | CPT/HCPCS: 97597 ==